=== PATIENT | female | born 1965 | race Caucasian/White ===

== ENCOUNTER 2019-02-19 11:47 | Day surgery (SDC) | payer SELFPAY, OTHER ==
--- NOTE | 2019-02-19 | LES_PTH ---
PATIENT: KATARZYNA CORMIER LOC: [facility] U#:[id number] AGE/SX: 53/F ROOM: RE02/19/[address]: Dr. Dallas Cohn MD : [id number] BED: DIS: 02/19/2019 SPEC #: [id number] RECD: 02/19/19 12:58 STATUS: ELMER REJI #: [id number] JULIANNE: 02/19/19 00:[address]: Dallas Cohn DEPT: SURGICAL PATHOLOGY RECD BY: Radha Garcia ENTERED: 02/19/19 13:41 SP TYPE: Lesion OTHR DR: Dr. Margarita Rogers MD Tissues: A - Skin of forehead B - Skin of forehead C - Skin of forehead D - Skin of forehead Procedures: Frozen Section (charge) Frozen Section Add'l ([facility]) Surgery Specimen Level IV HEADER OPERATION: Excision lesion, intermediate closure, forehead, frozen section PRE-OP DIAGNOSIS: Basal cell carcinoma forehead TISSUE SUBMITTED: A - Left forehead lesion and scab, short - medial, long - inferior, sent for FS at 1251, B - Midline forehead lesion, long - 6 o'clock inferior, short - 9 o'clock right, sent for FS at 1254, C - Additional right forehead lesion at 9 o'clock for permanent, stitch is lateral, D - Additional left forehead lesion at 3 o'clock for permanent, stitch is lateral FROZEN SECTION DIAGNOSIS A. Lesion, left forehead and scab, excisional biopsy: Negative for carcinoma. Consistent with epidermal inclusion cyst. B. Lesion, forehead midline, excisional biopsy: Basal cell carcinoma, completely excised in the planes of sections examined. SJ:patricia 02/19/19 A & B. Case has been reviewed in consultation with Dr. Villalobos who concurs with the above diagnosis. IDC:AM MICROSCOPIC DIAGNOSIS A. Lesion, left forehead and scab, excisional biopsy: Epidermal inclusion cyst. Negative for carcinoma. B. Lesion, forehead midline, excisional biopsy: Basal cell carcinoma, nodular type, with focal superficial ulceration and associated inflammation (1 cm in greatest dimension), completely excised in the planes of sections examined. Solar elastosis. C. Additional right forehead lesion at 9 o'clock, biopsy: Mild actinic keratosis and solar elastosis. Negative for malignancy. D. Additional left forehead lesion at 3 o'clock, biopsy: Mild actinic keratosis and solar elastosis. Negative for malignancy. DOMINGO:patricia 02/21/19 COMMENT Case has been reviewed in consultation with Dr. Villalobos who concurs with the above diagnosis. IDC:AM MICROSCOPIC DESCRIPTION Slides are reviewed. GROSS DESCRIPTION A - Received fresh for frozen section diagnosis labeled with the patient's name is a specimen designated lesion left forehead and scab. The specimen consists of a piece of arias-white skin ellipse measuring 1 x 0.5 x 0.1 cm. The specimen is oriented by sutures as follows: short stitch - medial, long stitch - inferior. The specimen is inked as follows: medial tip - yellow, lateral tip - green, superior margin - black, inferior margin - blue. The specimen is serially sectioned and submitted entirely for frozen section diagnosis in one cassette. / SJ:patricia 02/19/19 B - Received fresh for frozen section diagnosis labeled with the patient's name is a specimen designated lesion forehead midline. The specimen consists of a round piece of arias-white skin measuring 1.6 x 1.5 cm and 0.5 cm in thickness. The specimen is oriented by sutures as follows: long stitch - 6 o'clock inferior, short stitch - 9 o'clock right. The specimen is inked as follows: 12 to 3 o'clock - black, 3 to 6 o'clock - blue, 6 to 9 o'clock - green, 9 to 12 o'clock - yellow. The specimen is serially sectioned and submitted entirely for frozen section diagnosis in two cassettes. / SJ:patricia 02/19/19 C - Received in fixative is one container labeled with the patient's name and designated additional right forehead lesion at 9 o'clock. The specimen consists of a triangle fragment of excised skin measuring 2 x 1.5 x 0.2 cm. A suture is present along one edge signifying the lateral edge. This edge is inked in blue ink. The remainder of the specimen is inked in black ink. The edge of the specimen that is opposite the tip is irregular. Serial sections do not reveal mass lesions. The specimen is sectioned and totally submitted in one cassette. / AM: 02/20/19 D - Received in fixative is one container labeled with the patient's name and designated additional left forehead lesion at 3 o'clock. The specimen consists of a triangle fragment of excised skin measuring 1 x 1 x 0.5 cm. A suture is present along one edge signifying the lateral edge. This edge is inked in blue ink. The remainder of the specimen is inked in black ink. The edge of the specimen that is opposite the tip is irregular. Serial sections do not reveal mass lesions. The specimen is sectioned and totally submitted in one cassette. / AM: 02/20/19 TC:0 CPT: 66808 x4, 01166 x2, [id number]
[2019-02-19 12:04] VITALS: BP 148/71; PULSE 70; RESP 16; TEMP 36.6; O2SAT 100; BMI 38.2
[2019-02-19] MEDS: Lactated Ringers 1,000 ML 100 ML IV (12:10)
[2019-02-19 12:41] LABS: Hematocrit 41.2 % (37-47); Hemoglobin 13.7 g/dL (12.0-15.0); Mean Corp Hgb Conc 33.3 g/dL (32-36); Mean Corpuscular Hgb 30.3 pg (27.0-32.0); Mean Corpuscular Volume 91.2 fL (81-99); Mean Platelet Vol. 9.1 fl (6.2-12.0); Platelet Count 280 K/mm3 (150-450); RBC Distribution Width CV 13.1 % (11.6-14.6); RBC Distribution Width SD 43.2 fl (35.1-43.9); Red Blood Count 4.52 M/mm3 (4.2-5.4); White Blood Count 7.4 K/mm3 (4.4-11.0)
[2019-02-19 12:45] LABS: Anion Gap 8 (5-15); BUN 14 mg/dL (7-18); BUN/Creat Ratio 17.8 RATIO (10-20); Chloride 108 mmol/L (98-107); Creatinine, Serum 0.79 mg/dL (0.55-1.02); EST Glomerular Filtration Rate 82 mL/min (>60); Est Glom Filt Rate - Afr Amer 99 mL/min (>60); Estimated Creatinine Clearance 66.63 ml/min; Glucose 88 mg/dL (74-106); Potassium 3.8 mmol/L (3.5-5.1); Sodium Level 141 mmol/L (136-145)
[2019-02-19] MEDS: Bacitracin 500 UNITS/GM PACKET (13:00)
--- NOTE | 2019-02-19 13:41 | PCM.DC ---
You will use the following diet at home:: Regular Discharge Activity: Return to Normal Activity Additional Activity Instructions:: Remove dressing on 02/20/19. May get the incisions wet on 02/21/19. Apply antibiotic ointment 3x/day. Allergies/Adverse Reactions: Allergies No Known Allergies Allergy (Verified 02/12/19 10:16) Medications to take at Discharge Muktabati 1 - 2 tab PO BID 02/12/19 [place]-3 Fatty Acids [Fish Oil] 1,500 mg PO DAILY 02/12/19 Vitamin Mineral 2 tab PO DAILY 02/12/19 Orders to be completed after discharge: 12 Lead EKG [CVS] Time Frame: 02/19/19, Facility: [facility], Location: Cardiovascular Services Primary Care Physician: Margarita Rogers MD [Primary Care Provider] - Test Results: Test results from this visit will be discussed in further detail at your follow-up appointment, if applicable.
--- NOTE | 2019-02-19 13:52 | PCM.OPRPT ---
Report of Operation Date of Procedure: 02/19/19 Pre-Operative Diagnosis: basal cell carcinoma forehead Post-Operative Diagnosis: same Surgery/Procedure Performed:: excision basal cell carcinoma forehead. excision epidermal inclusion cyst forehead. intermediate repair for both Description of Surgical Findings:: basal cell carcinoma size of carcinoma size of tumor 1 x 1 cm. Size of defect 4.8x 2cm epidermal inclusion cyst size of cyst 2x 5 mm size of defect 5x9 mm Type of Anesthesia:: General Anesthesiologist: Ketan Olivera Specimen's removed: left forehead (epidermal inclusion cyst). midline forehead (basal cell carcinoma) Estimated Blood Loss (mL): minimal Description of Procedure: Patient was taken to room on 02/19/2019. She was placed in the supine position on the operating table. She was given sufficient general endotracheal anesthesia. The tube was turned 90 degrees and a counterclockwise fashion. The forehead was prepped and draped sterilely. 1% lidocaine with epinephrine was injected into the skin surrounding each lesion. The left forehead lesion was excised in an ellipse. Bipolar cautery was used for hemostasis. This was sent for frozen section which eventually revealed an epidermal inclusion cyst. This was then closed with 4-0 chromic for the deep sutures and 5-0 Prolene for the skin. Next, I excised the midline forehead lesion with 5 mm margins. This was sent for frozen section. Frozen section eventually came back as basal cell carcinoma completely excised. I completed the excision in an ellipse. The right and left margins were sent for additional permanent section. Hemostasis was achieved using monopolar and bipolar cautery. Extensive undermining was undertaken then both inferiorly and superiorly. Next I closed the deep layer with interrupted 3-0 chromic. The skin was closed with interrupted 5-0 Prolene. Bacitracin and pressure dressing were then applied. Patient was awoken brought to the recovery room in stable condition. Blood loss minimal. Replacement none. Sponge, needle, and instrument count were correct at the end of the procedure.
[2019-02-19 13:53] VITALS: BP 127/59; BP 148/71; PULSE 78; RESP 16; TEMP 36.9; O2SAT 93
[2019-02-19 14:00] VITALS: BP 118/65; BP 148/71; PULSE 82; RESP 16; O2SAT 95
[2019-02-19 14:15] VITALS: BP 131/66; BP 148/71; PULSE 59; RESP 16; O2SAT 97
[2019-02-19 14:40] VITALS: BP 124/68; BP 148/71; PULSE 64; RESP 16; TEMP 37; O2SAT 96
[2019-02-19 15:20] VITALS: BP 127/69; BP 148/71; PULSE 69; RESP 16; TEMP 36.2; O2SAT 97
== END 2019-02-19 16:16 | disposition home or self-care (01) ==
LOC: SDC 11:50 → AC 11:53
PROVIDERS: Family Provider Family Medicine; PCP Family Medicine; Referring Provider Otolaryngology; Visit Provider Otolaryngology
PROC: (CPT 11442; principal; 2019-02-19 13:15)
DX: C44.319 Basal cell carcinoma of skin of other parts of face (principal); L72.0 Epidermal cyst
CPT/HCPCS: 00300; 11442; 11643; 12052; 80048; 85027; 88305; 88331; 88332; 93005; J7120; J2405